=== PATIENT | male | born 1940 | race Caucasian/White ===

== ENCOUNTER 2021-03-28 04:27 | Inpatient (IN) | payer OTHER, MEDICARE ==
[~2021-03-28] VITALS: Ht 182.9 cm; Wt 58.9 kg
[~2021-03-28 04:27] MED LIST: Anusol-HC 2.5%30 GM EXT; DRON5 PO; HYDACE5 PO; HYDCOR2.5C PR; MULVITA PO; Miralax17 GM PO; OMEP20ER PO; PROM25 PO
[2021-03-28 05:10] LABS: Calcium, Ionized (POC) 1.11 mmol/L (1.10-1.46); Chloride (POC) 103 mmol/L (98-108); Creatinine (POC) 1.1 mg/dL (0.8-1.3); Glucose (ISTAT POC) 135 mg/dL (70-99); Hemoglobin (POC) 13.9 g/dL (13.5-17.5); Potassium (POC) 3.9 mmol/L (3.5-5.5); Sodium (POC) 136 mmol/L (135-148); Total CO2 (POC) 19 mmol/L (21-32)
[2021-03-28 05:15] LABS: BASOPHILS ABSOLUTE AUTO 0.04 K/mm3 (0.00-0.23); BASOPHILS PERCENT AUTO 1 % (0-2); EOSINOPHILS ABSOLUTE AUTO 0.18 K/mm3 (0.00-0.68); EOSINOPHILS PERCENT AUTO 2 % (0-6); Hematocrit 39.5 % (37.0-53.0); Hemoglobin 13.6 g/dL (13.5-17.5); IMMATURE GRAN ABSOLUTE AUTO 0.04 K/mm3 (0.00-0.10); IMMATURE GRAN PERCENT AUTO 1 % (0-1); LYMPHOCYTES ABSOLUTE AUTO 1.66 K/mm3 (0.84-5.20); LYMPHOCYTES PERCENT AUTO 19 % (21-46); MONOCYTES ABSOLUTE AUTO 0.72 K/mm3 (0.16-1.47); MONOCYTES PERCENT AUTO 8 % (4-13); Mean Corpuscular HGB 30.4 pg (26.0-34.0); Mean Corpuscular HGB Conc 34.4 g/dL (31.5-36.5); Mean Corpuscular Volume 88 fL (80-100); Mean Platelet Volume 9.2 fL (9.1-12.4); NEUTROPHILS ABSOLUTE AUTO 5.95 K/mm3 (1.96-9.15); NEUTROPHILS PERCENT AUTO 69 % (41-73); Platelet Count 175 K/mm3 (150-400); RDW Coefficient Variation 13.5 % (11.7-14.2); RDW Standard Deviation 43.9 fL (35.1-46.3); Red Blood Cell Count 4.48 M/mm3 (4.30-5.90); White Blood Cell Count 8.59 K/mm3 (4.00-11.30)
[2021-03-28 05:30] LABS: International Normalized Ratio 0.98; Prothrombin Time Results 10.6 Sec (9.7-11.5)
[2021-03-28 05:51] LABS: Alanine Aminotransfer (ALT/SGP 21 U/L (12-78); Albumin, Blood 3.6 g/dL (3.4-5.0); Albumin/Globulin Ratio 0.9 (0.8-1.8); Alk Phos 141 U/L (50-136); Anion Gap 7 mmol/L (6-16); Aspartate Aminotrans (AST/SGOT 43 U/L (12-37); Bilirubin, Total 0.7 mg/dL (0.1-1.0); Blood Urea Nitrogen 12 mg/dL (8-24); CO2, Blood 24 mmol/L (21-32); Calcium, Blood 9.2 mg/dL (8.5-10.1); Chloride, Blood 104 mmol/L (98-108); Creatinine, Blood 1.09 mg/dL (0.60-1.20); Glomerular Filtration Rate >60 (60-); Glucose, Blood 122 mg/dL (70-99); Potassium, Blood 3.7 mmol/L (3.5-5.5); Sodium, Blood 135 mmol/L (136-145); Total Protein, Blood 7.6 g/dL (6.4-8.2)
[2021-03-28 10:01] LABS: CHOL/HDL RATIO 3.6; Cholesterol 171 mg/dL (50-200); HDL Cholesterol 47 mg/dL (>39); LDL/HDL RATIO 2.4; Low Density Lipoprotein Chol 114 mg/dL (0-110); Triglycerides 50 mg/dL (30-160); Very Low Density Lipoprot Chol 10 mg/dL (6-32)
--- NOTE | 2021-03-28 12:12 | NUR ---
Echocardiogram completed.
--- NOTE | 2021-03-28 18:27 | NUR ---
PT RECEIVED AT 0728 FROM [facility]IA STRETCHER ACCOMPANIED BY RN X2 ON NITROGLYCERINE DRIP ON RA AND CARDIAC MONITORING; PT'S NITROGLYCERINE STOPPED AT 0935; TR BAND IN PLACE ON R RADIAL ACCESS SITE WITH 12ML AIR IN RETENTION PILLOW ; MINIMAL HEMATOMA NOTED DISTAL FROM BAND AND MARKED IN BLACK; SITE CHECKED AT 0730, 0745, 0800, 0815, 0845, AND 0900; PO ANTIHYPERTENSIVE RX GIVEN WHILE EDUCATION PROVIDED BY DR. TOVAR AT BEDSIDE; PHLEBOTOMY VISITED PT AT 0845 AND SBP NOTED TO HAVE DECREASED FROM 160'S TO 130'S; NEW DARK HEMATOMA NOTED AT 0900 WHERE NONE HAD BEEN NOTED AT 0845, MARGINS MARKED IN BLUE ; PRESSURE APPLIED MANUALLY AND DR. TOVAR WAS CALLED AT 0915; 2ML AIR ADDED PER TELEPHONE DIRECTIONS; DR. TOVAR AT BEDSIDE AT 0920 TO ASSESS SITE; DIRECTIONS PROVIDED VERBALLY TO BEGIN TR AIR EXTRACTION AT 1015; AIR VOLUME FOLLOWS; 12ML AIR AT 0910, 14ML AT 0915, 13.5ML AT 0923, 13 ML AT 0923, INCREASE IN HEMATOMA BORDERS BUT NOT ELEVATION NOTED AT 0930, PRESSURE HELD MANUALLY AND BORDERS MARKED IN RED, 11ML AT 1015, 9ML AT 1045, 7ML AT 1100, 5ML AT 1212, 3ML AT 1235, 1ML AT 1330, EMPTY AT 1422; BAND REMOVED AT 1645 AND ARM BOARD LEFT IN PLACE; PT'S DAUGHTER OBDULIA WAS UPDATED VIA PHONE AT 0945 AND REPORTED NO UNANSWERED QUESTIONS; VSS; HOPSON; PT VOIDED IN URINAL SEVERAL TIMES; PT'S DAUGHTER AT BEDSIDE DURING VISITING HOURS; PT DENIES ADDITIONAL CONCERNS AT THIS TIME ASIDE FROM SMOKING CESSATION, DIMINISHED APPETITE WITH RESULTING WEIGHT LOSS, AND MARIJUANA EDIBLE ROUTE CONSUMPTION, ALL OF WHICH WERE EDUCATED ABOUT BY DR. TOVAR AT BEDSIDE
[2021-03-28 19:01] LABS: Source, Urine Voided
[2021-03-28 19:06] LABS: Appearance, Urine Clear (Clear); Bilirubin, Urine Neg (Neg); Blood, Urine 4+ (Neg); Color, Urine Yellow (P-Yellow); Glucose Qualitative, Urine Neg (Neg); Ketones, Urine 1+ (Neg); Leukocyte Esterase, Urine Neg (Neg); Nitrite, Urine Neg (Neg); Protein, Urine 3+ (Neg); Urobilinogen, Urine NORM (Normal)
[2021-03-28 19:19] LABS: Bacteria Few /hpf; Hyaline Casts Rare /lpf (0-2); Red Blood Cells, Urine Not Seen /hpf (0-2); Squamous Epithelial Cells Rare /hpf (Few); White Blood Cells, Urine Rare /hpf (0-5)
--- NOTE | 2021-03-29 08:40 | NUR ---
INITIAL ASSESSMENT: PT IS AWAKE AND ALERT AND ORIENTED. PT REPORTED TO PCT THAT HE IS SOB. HE STATES HE FEELS LIKE HE IS HAVING TO BREATHE MORE RAPIDLY AND HAS A HARD TIME CATCHING HIS BREATH. BIOX 94% RA, 1L O2 PLACED FOR COMFORT. PT DENIES CP AT THIS TIME. HRR, SR WITH PACS IN THE 80S PER TELEMETRY. LS DIM IN THE BASES. PT HAS ARM BOARD TO RIGHT ARM, TR SITE WITH SOME BRUISING WITHIN TRACING, SOFT AND NON-TENDER. VSS. AM MEDS GIVEN AT THIS TIME. PT DENIES OTHER NEEDS, CALL LIGHT IN REACH, WILL CONTINUE TO MONITOR.
--- NOTE | 2021-03-29 09:00 | NUR ---
REPORT GIVEN TO KRISTINA SANTOS.
--- NOTE | 2021-03-29 12:39 | NUR ---
Assumed care of this pt this morning at 9 Am. He is A/o x 4 and has no c/o discomfort. Pt currently on 2lpm via NC, per report the pt was having some SOB and the O2 helped with his comfort and O2 SATs have been in the high 90's. The Pt reports that he started smoking when he was 14 and often feels like he cant catch his breath. Tele shows NSR in the 70's. His right radial site remains bruised but no bleeding observed. Pt is able to make his needs known and was reminded to use the call light for assistance.
--- NOTE | 2021-03-29 17:52 | NUR ---
SHIFT SUMMARY Pt has been a/o x 4 with no c/o pain. He calls appropriately and uses both the urinal and the toilet. His right radial site remains bruised and Dr Lamas is aware. This afternoon the pt has been tachy in a flutter. Dr Lamas was notified and gave orders for an ECG which was done and he reviewed the results. Dr Lamas met with the pt and then entered orders for his heart rate/rhythm as reflected on the MAR. The pt's HR is currently 104 down from the 140's-150's. The pt denies chest pain but he does report that he can feel when his HR is elevated. He is resting in bed watching TV and eating dinner.
--- NOTE | 2021-03-29 23:04 | NUR ---
BLACK STOOL PT HAS EPISODE OF BLACK STOOL. PT REPORTS HAVING GAS AND HAVING DIARRHEA, MADE IT TO BEDSIDE COMMODE W/O CALLING FOR ASSISTANCE. ON EXAMINATION, COMMODE IS FILLED IN BOTTOM WITH WHAT APPEARS TO BE BLACK TARRY, LOOSE STOOL. THIS RN ASKS PT HOW LONG HE HAS HAD THIS TYPE OF STOOL FOR, PT STATES IT HAS BEEN SINCE HE WAS HERE IN THE HOSPITAL. THIS RN COLLECTS A SAMPLE. DEPUTY DIRECTOR BELL NOTIFIED. HOLDING BRILLINTA UNTIL SPEAKING WITH HOSPITALIST.
--- NOTE | 2021-03-29 23:24 | NUR ---
CALL TO DR GARCIA THIS RN CALLS PROVIDER TO REPORT BLACK STOOLS, ORDER FOR GUAIC AND REPEAT CBC PLACED. PROVIDER REQUESTS THIS RN CONSULT CARDIOLOGY REGARDING CONTINUING BRILLINTA TONIGHT FOLLOWING RESULT OF GUAIAC. STOOL SAMPLE WAS ALREADY SENT TO LAB.
[2021-03-29 23:36] LABS: Stool Occult Blood Guaiac 1 Pos (Neg)
[2021-03-29 23:41] LABS: BASOPHILS ABSOLUTE AUTO 0.01 K/mm3 (0.00-0.23); BASOPHILS PERCENT AUTO 0 % (0-2); EOSINOPHILS PERCENT AUTO 0 % (0-6); Hematocrit 38.5 % (37.0-53.0); Hemoglobin 13.1 g/dL (13.5-17.5); IMMATURE GRAN ABSOLUTE AUTO 0.06 K/mm3 (0.00-0.10); IMMATURE GRAN PERCENT AUTO 1 % (0-1); LYMPHOCYTES ABSOLUTE AUTO 1.03 K/mm3 (0.84-5.20); LYMPHOCYTES PERCENT AUTO 9 % (21-46); MONOCYTES ABSOLUTE AUTO 0.97 K/mm3 (0.16-1.47); MONOCYTES PERCENT AUTO 8 % (4-13); Mean Corpuscular Volume 88 fL (80-100); Mean Platelet Volume 9.5 fL (9.1-12.4); NEUTROPHILS ABSOLUTE AUTO 9.54 K/mm3 (1.96-9.15); NEUTROPHILS PERCENT AUTO 82 % (41-73); Platelet Count 159 K/mm3 (150-400); RDW Coefficient Variation 13.9 % (11.7-14.2); RDW Standard Deviation 45.1 fL (35.1-46.3); Red Blood Cell Count 4.36 M/mm3 (4.30-5.90); White Blood Cell Count 11.61 K/mm3 (4.00-11.30)
--- NOTE | 2021-03-30 01:17 | NUR ---
CALL TO EQUIPMENT MONITOR PHOTOTYPESETTING DR HOPKINS THIS RN DISCUSSES PT CASE WITH DR HOPKINS AND JONATA HELD DUE TO BLACK TARRY STOOL AND FINDING OF POSITIVE GUAIAC. DR HOPKINS RECCOMENDS GIVING BRILINTA NOW AND HAVING PROVIDERS REASSESS IN THE AM. CONCERN FOR PT NOT ON BRILINTA DUE TO FRESH STENTS.
[2021-03-30 05:39] LABS: Hematocrit 37.1 % (37.0-53.0); Hemoglobin 12.5 g/dL (13.5-17.5)
--- NOTE | 2021-03-30 07:52 | NUR ---
SHIFT SUMMARY PT AOX4, DYSPNEIC WITH EXERTION. SINUS IN THE 80'S WITH OCCASIONAL PVC'S. DENIED CP T/O SHIFT. EPISODE OF BLACK TARRY STOOL. PROVIDERS CONSULTED. GI CONSULT THIS AM ORDERED, CONT PROTONIX GTT INFUSING. L IV TENDER AND SWOLLEN, DC. NO FURTHER EPISODES OF DIARRHEA. DENIES NAUSEA. BP TRENDED DOWN INTO MID 90'S SBP DURING SHIFT, BACK UP TO 110'S SBP THIS AM. PER DR HOPKINS DYER HELPER, BRILINTA DOSE GIVEN AND TO BE REASSESSED THIS AM.
[2021-03-30 11:25] LABS: SARS-Cov-2 (COVID-19) PCR, MMC NEGATIVE (NEGATIVE)
--- NOTE | 2021-03-30 11:56 | NUR ---
PT ALERT AND ORIENTED X4. FORGETFUL AT TIMES. LUNGS SOUNDING CLEAR AND DIM AT BASES. SATING MID 90'S ON 1 L O2. TELE SHOWING SINUS WITH HR 80'S. DENIES CHEST PAIN/PRESSURE. VITAL SIGNS STABLE. BOWEL TONES HEARD. REPORT THAT PATIENT HAD A EPISODE OF INCONTINENCE IN BED, AND THAT THE STOOL WAS BLACK AND TARRY. GI ON BOARD. PROTONIX GTT IN PLACE. PLAN FOR SCOPE TODAY. PT AWARE AND DENIES QUESTIONS. BRUISING SCATTERED THROUGHOUT. PT COMPLAINS OF DRY HACKING COUGH, I HAVE NOT OBSERVED ANY COUGHING THIS AM. CALL LIGHT IN REACH. PT ABLE TO REPOSITION SELF IN BED. WILL CONTINUE TO MONITOR.
--- NOTE | 2021-03-30 13:56 | NUR ---
PT TAKEN TO DAY SURGERY FOR EGD AT 1340.
--- NOTE | 2021-03-30 14:30 | NUR ---
03/30/21 1430 WADE BELLO History, Chart, Medications and Allergies reviewed before start of procedure. 3-LEAD EKG REVIEWED WITH PHYSICIAN PRIOR TO START OF PROCEDURE. MONITOR INTACT WITH CONTINUOUS PULSE OXIMETRY AND INTERMITTENT BP. O2 VIA POM INTACT THROUGHOUT SEDATION/PROCEDURE. GENERAL WITH DR. PEDRO
--- NOTE | 2021-03-30 14:41 | NUR ---
THE PATIENT WAS BROUGHT TO D/S FOR HIS PROCEDURE. Patient up to Ambulate independently. Gait steady. History, Chart, Medications and Allergies reviewed before start of procedure.Lungs clear T/O to Auscultation. Patient confirms NPO status and agrees with scheduled surgery. Pre-Op teaching done. Pt verbalizes understanding.
--- NOTE | 2021-03-30 15:43 | NUR ---
PT BACK FROM EGD AT 1350. VITAL SIGNS STABLE. ON 1 L O2 SATING MID 90'S. DENIES CHEST PAIN/PRESSURE. TELE SHOWING SINUS WITH HR 80'S. DENIES PAIN. PICTURES OF EGD IN CHART. WILL CONTINUE TO MONITOR.
--- NOTE | 2021-03-30 17:33 | NUR ---
SHIFT SUMMARY: PT REMAINS ALERT AND ORIENTED. VITAL SIGNS STABLE. SEE PREVIOUS NOTES. DENIES PAIN. NO SIGNS OF ACTIVE GI BLEED. PROTONIX INFUSING. PT ABLE TO MOVE INDEPEND IN BED. SOTALOL GIVEN AND POST ONE HOUR EKG DONE. DR. TOVAR UPDATED. PT EATING WELL. 1L O2 SATING MID 90'S. TELE SHOWING SINUS WITH HR 70-80'S. WILL CONTINUE TO MONITOR AND REPORT OFF.
[2021-03-31 05:08] LABS: BASOPHILS ABSOLUTE AUTO 0.03 K/mm3 (0.00-0.23); BASOPHILS PERCENT AUTO 0 % (0-2); EOSINOPHILS ABSOLUTE AUTO 0.09 K/mm3 (0.00-0.68); EOSINOPHILS PERCENT AUTO 1 % (0-6); Hematocrit 35.2 % (37.0-53.0); Hemoglobin 11.7 g/dL (13.5-17.5); IMMATURE GRAN ABSOLUTE AUTO 0.03 K/mm3 (0.00-0.10); IMMATURE GRAN PERCENT AUTO 0 % (0-1); LYMPHOCYTES ABSOLUTE AUTO 1.33 K/mm3 (0.84-5.20); LYMPHOCYTES PERCENT AUTO 14 % (21-46); MONOCYTES ABSOLUTE AUTO 0.92 K/mm3 (0.16-1.47); MONOCYTES PERCENT AUTO 9 % (4-13); Mean Corpuscular HGB 30.2 pg (26.0-34.0); Mean Corpuscular HGB Conc 33.2 g/dL (31.5-36.5); Mean Corpuscular Volume 91 fL (80-100); Mean Platelet Volume 10.2 fL (9.1-12.4); NEUTROPHILS ABSOLUTE AUTO 7.44 K/mm3 (1.96-9.15); NEUTROPHILS PERCENT AUTO 76 % (41-73); Platelet Count 160 K/mm3 (150-400); RDW Standard Deviation 46.4 fL (35.1-46.3); Red Blood Cell Count 3.88 M/mm3 (4.30-5.90); White Blood Cell Count 9.84 K/mm3 (4.00-11.30)
[2021-03-31 06:49] LABS: Digoxin (Lanoxin) 3.68 ug/mL (0.80-2.00)
--- NOTE | 2021-03-31 07:42 | NUR ---
SUMMARY PT WANTING TO GO HOME TODAY. IV SITE LOST THIS AM AND UNABLE TO OBTAIN ANOTHER SITE DUE TO VALVES AND PT DISCOMFORT OF PATENT SITE.ALSO, THIS AM DIG LEVEL CRITICAL REPORTED AT 0650 AND ÓSCAR FELIZ RN AGREES TO FOLLOW UP WITH
[2021-03-31] MEDS ORDERED: Acetaminophen325 M1 PO (17:02)
[2021-03-31] MEDS ORDERED: ATOR80 PO (17:03)
[2021-03-31] MEDS ORDERED: NITR.4SL SL (17:04)
[2021-03-31] MEDS ORDERED: LISI5 PO (17:04)
[2021-03-31] MEDS ORDERED: PANT40 PO (17:05)
[2021-03-31] MEDS ORDERED: SOTO80 PO (17:06)
[2021-03-31] MEDS ORDERED: TICA90TA PO (17:07)
--- NOTE | 2021-03-31 17:34 | NUR ---
DISCHARGE INSTRUCTIONS REVIEWED WITH PATIENT AND QUESTIONS ANSWERED. PT DENIES PAIN OR SOB, AGUILAR PO FOOD AND FLUIDS WITHOUT NAUSEA. VOIDING CLEAR YELLOW URINE, NO STOOLS THIS SHIFT. PT PRESCRIPTIONS FAXED TO JO PER PT REQUEST UNABLE TO BE FILLED AT [facility]. [facility] CONTACTED PER PT REQUEST TO TRANSPORT TO HOME
--- NOTE | 2021-03-31 17:55 | NUR ---
DISCHARGED TO HOME
== END 2021-03-31 18:00 | disposition home or self-care (01) | DRG 246 ==
LOC: ER 04:27 → ICUW 05:39 → ER 05:39 → PCU 05:39 → ICUW 07:10 → PCU 03-29 00:15 → ICUW 03-29 00:15 → PCU 03-29 15:43
PROVIDERS: Emergency Medicine; Family Medicine; Internal Medicine; Internal Medicine Gastroenterology; ADMIT Internal Medicine Cardiovascular Disease
PROC: 027035Z Dilation of Coronary Artery, One Artery with Two Drug-eluting Intraluminal Devices, Percutaneous Approach (ICD-10-PCS; principal; 2021-03-28)
PROC: 4A023N7 Measurement of Cardiac Sampling and Pressure, Left Heart, Percutaneous Approach (ICD-10-PCS; 2021-03-28)
PROC: B2111ZZ Fluoroscopy of Multiple Coronary Arteries using Low Osmolar Contrast (ICD-10-PCS; 2021-03-28)
PROC: 0DB68ZX Excision of Stomach, Via Natural or Artificial Opening Endoscopic, Diagnostic (ICD-10-PCS; 2021-03-30)
DX: I21.02 ST elevation (STEMI) myocardial infarction involving left anterior descending coronary artery (principal); K26.4 Chronic or unspecified duodenal ulcer with hemorrhage; K25.4 Chronic or unspecified gastric ulcer with hemorrhage; J44.9 Chronic obstructive pulmonary disease, unspecified; I25.10 Atherosclerotic heart disease of native coronary artery without angina pectoris; E78.5 Hyperlipidemia, unspecified; I10 Essential (primary) hypertension; F17.210 Nicotine dependence, cigarettes, uncomplicated; I48.0 Paroxysmal atrial fibrillation; J98.4 Other disorders of lung; T45.515A Adverse effect of anticoagulants, initial encounter; Z90.49 Acquired absence of other specified parts of digestive tract; Z91.041 Radiographic dye allergy status
CPT/HCPCS: 36415; 71045; 76937; 80047; 80053; 80061; 80162; 81001; 82270; 83036; 84443; 84484; 85014; 85018; 85025; 85347; 85610; 88305; 88342; 93005; 93010; 93458; 96365; 96375; 99152; 99153; 99285-25; A9270; C1725; C1769; C1874; C1887; C1894; C8929; C9113; C9606; J1160; J1200; J1644; J2250; J2270; J2704; J3010; J7030; J7050; J7120; Q9957; Q9967; U0004

== ENCOUNTER 2021-04-20 07:36 | Emergency (ER) | payer OTHER, MEDICARE ==
[~2021-04-20] VITALS: Ht 182.9 cm; Wt 58.1 kg
[~2021-04-20 07:36] MED LIST changes: +ATOR80 PO; +Acetaminophen325 M1 PO; +LISI5 PO; +NITR.4SL SL; +PANT40 PO; +SOTO80 PO; +TICA90TA PO
[2021-04-20 07:59] LABS: BASOPHILS ABSOLUTE AUTO 0.07 K/mm3 (0.00-0.23); BASOPHILS PERCENT AUTO 1 % (0-2); EOSINOPHILS ABSOLUTE AUTO 0.31 K/mm3 (0.00-0.68); EOSINOPHILS PERCENT AUTO 4 % (0-6); Hematocrit 36.6 % (37.0-53.0); Hemoglobin 12.2 g/dL (13.5-17.5); IMMATURE GRAN ABSOLUTE AUTO 0.01 K/mm3 (0.00-0.10); IMMATURE GRAN PERCENT AUTO 0 % (0-1); LYMPHOCYTES ABSOLUTE AUTO 1.61 K/mm3 (0.84-5.20); LYMPHOCYTES PERCENT AUTO 22 % (21-46); MONOCYTES ABSOLUTE AUTO 0.69 K/mm3 (0.16-1.47); MONOCYTES PERCENT AUTO 9 % (4-13); Mean Corpuscular HGB 29.9 pg (26.0-34.0); Mean Corpuscular HGB Conc 33.3 g/dL (31.5-36.5); Mean Corpuscular Volume 90 fL (80-100); Mean Platelet Volume 9.3 fL (9.1-12.4); NEUTROPHILS ABSOLUTE AUTO 4.65 K/mm3 (1.96-9.15); NEUTROPHILS PERCENT AUTO 63 % (41-73); Platelet Count 204 K/mm3 (150-400); RDW Coefficient Variation 14.2 % (11.7-14.2); RDW Standard Deviation 46.4 fL (35.1-46.3); Red Blood Cell Count 4.08 M/mm3 (4.30-5.90); White Blood Cell Count 7.34 K/mm3 (4.00-11.30)
[2021-04-20 08:18] LABS: Albumin, Blood 3.6 g/dL (3.4-5.0); Albumin/Globulin Ratio 0.9 (0.8-1.8); Bilirubin, Total 0.7 mg/dL (0.1-1.0); Bun/Creatinine Ratio 9.5 (12.0-20.0); Calcium, Blood 9.4 mg/dL (8.5-10.1); Creatinine, Blood 1.79 mg/dL (0.60-1.20); Potassium, Blood 3.7 mmol/L (3.5-5.5); Total Protein, Blood 7.6 g/dL (6.4-8.2)
[2021-04-20] MEDS ORDERED: TORSE20 PO (08:30)
[2021-04-20] MEDS ORDERED: SPIR25 PO (08:31)
[2021-04-20] MEDS ORDERED: Crestor20 MG PO (08:32)
[2021-04-20] MEDS ORDERED: PRED20 PO (09:08)
== END 2021-04-20 09:37 | disposition home or self-care (01) ==
LOC: ER 07:36
PROVIDERS: Emergency Medicine
DX: R06.02 Shortness of breath (principal); Z79.899 Other long term (current) drug therapy; Z91.041 Radiographic dye allergy status; Z87.891 Personal history of nicotine dependence
CPT/HCPCS: 71045; 80053; 84484; 85025; 93005; 93010; 94640; 94664; 96374; 99285-25; A9270; J1100

== ENCOUNTER 2021-06-02 18:29 | Inpatient (IN) | payer OTHER, MEDICARE ==
[~2021-06-02] VITALS: Ht 182.9 cm; Wt 121.6 kg
[~2021-06-02 18:29] MED LIST changes: +Crestor20 MG PO; +PRED20 PO; +SPIR25 PO; +TORSE20 PO
[2021-06-02 18:56] LABS: BASOPHILS ABSOLUTE AUTO 0.03 K/mm3 (0.00-0.23); BASOPHILS PERCENT AUTO 0 % (0-2); EOSINOPHILS ABSOLUTE AUTO 0.03 K/mm3 (0.00-0.68); EOSINOPHILS PERCENT AUTO 0 % (0-6); Hematocrit 33.8 % (37.0-53.0); Hemoglobin 11.2 g/dL (13.5-17.5); IMMATURE GRAN ABSOLUTE AUTO 0.07 K/mm3 (0.00-0.10); IMMATURE GRAN PERCENT AUTO 1 % (0-1); LYMPHOCYTES ABSOLUTE AUTO 1.29 K/mm3 (0.84-5.20); LYMPHOCYTES PERCENT AUTO 11 % (21-46); MONOCYTES ABSOLUTE AUTO 1.38 K/mm3 (0.16-1.47); MONOCYTES PERCENT AUTO 11 % (4-13); Mean Corpuscular HGB 29.4 pg (26.0-34.0); Mean Corpuscular HGB Conc 33.1 g/dL (31.5-36.5); Mean Corpuscular Volume 89 fL (80-100); Mean Platelet Volume 9.5 fL (9.1-12.4); NEUTROPHILS ABSOLUTE AUTO 9.51 K/mm3 (1.96-9.15); NEUTROPHILS PERCENT AUTO 77 % (41-73); Platelet Count 263 K/mm3 (150-400); RDW Coefficient Variation 14.4 % (11.7-14.2); RDW Standard Deviation 46.5 fL (35.1-46.3); Red Blood Cell Count 3.81 M/mm3 (4.30-5.90); White Blood Cell Count 12.31 K/mm3 (4.00-11.30)
[2021-06-02 19:09] LABS: Albumin/Globulin Ratio 0.7 (0.8-1.8); Bilirubin, Total 0.5 mg/dL (0.1-1.0); Bun/Creatinine Ratio 15.3 (12.0-20.0); Calcium, Blood 9.6 mg/dL (8.5-10.1); Creatinine, Blood 2.48 mg/dL (0.60-1.20); Globulin, Blood 4.1 g/dL (2.2-4.0); Magnesium, Blood 1.9 mg/dL (1.6-2.4); Potassium, Blood 5.5 mmol/L (3.5-5.5); Total Protein, Blood 7.1 g/dL (6.4-8.2); Troponin I 0.479 ng/mL (0.000-0.040)
[2021-06-02 19:37] LABS: International Normalized Ratio 1.07; Prothrombin Time Results 11.5 Sec (9.7-11.5)
[2021-06-03 01:01] LABS: Troponin I 0.63 ng/mL (0.000-0.040)
[2021-06-03] MEDS ORDERED: ATOR80 PO (01:52)
[2021-06-03] MEDS ORDERED: CLOP75 PO (01:53)
--- NOTE | 2021-06-03 02:41 | NUR ---
Admit Note Received handoff from ER nurse Naeem. Pt arrived to floor via gurney. Telemetry in placed. Iv fluids infusing. Call button within reach. Pt oriented to unit.
--- NOTE | 2021-06-03 03:59 | NUR ---
Started hepain as ordered.
[2021-06-03 05:02] LABS: Source, Urine Clean Catch
[2021-06-03 05:09] LABS: Blood, Urine Neg (Neg); Glucose Qualitative, Urine Neg (Neg); Ketones, Urine 1+ (Neg); Leukocyte Esterase, Urine 1+ (Neg); Nitrite, Urine Neg (Neg); Protein, Urine 2+ (Neg); Specific Gravity, Urine 1.025 (1.003-1.022); Urobilinogen, Urine 1+ (Normal)
[2021-06-03 05:38] LABS: Appearance, Urine Hazy (Clear); Bilirubin, Urine 1+ (Neg); Color, Urine Amber (P-Yellow)
[2021-06-03 05:39] LABS: Amorphous Mod (0-Heavy); Bacteria Rare /hpf; Red Blood Cells, Urine Not Seen /hpf (0-2); Squamous Epithelial Cells Rare /hpf (Few); Transitional Epithelial Cells Few /hpf (0-Rare); White Blood Cells, Urine 0-2 /hpf (0-5)
[2021-06-03 05:48] LABS: BASOPHILS ABSOLUTE AUTO 0.03 K/mm3 (0.00-0.23); BASOPHILS PERCENT AUTO 0 % (0-2); EOSINOPHILS ABSOLUTE AUTO 0.03 K/mm3 (0.00-0.68); EOSINOPHILS PERCENT AUTO 0 % (0-6); Hematocrit 31.2 % (37.0-53.0); Hemoglobin 10.1 g/dL (13.5-17.5); IMMATURE GRAN ABSOLUTE AUTO 0.03 K/mm3 (0.00-0.10); IMMATURE GRAN PERCENT AUTO 0 % (0-1); LYMPHOCYTES ABSOLUTE AUTO 1.47 K/mm3 (0.84-5.20); LYMPHOCYTES PERCENT AUTO 17 % (21-46); MONOCYTES ABSOLUTE AUTO 0.94 K/mm3 (0.16-1.47); MONOCYTES PERCENT AUTO 11 % (4-13); Mean Corpuscular HGB 29.4 pg (26.0-34.0); Mean Corpuscular HGB Conc 32.4 g/dL (31.5-36.5); Mean Corpuscular Volume 91 fL (80-100); Mean Platelet Volume 9.8 fL (9.1-12.4); NEUTROPHILS ABSOLUTE AUTO 6.23 K/mm3 (1.96-9.15); NEUTROPHILS PERCENT AUTO 72 % (41-73); Platelet Count 228 K/mm3 (150-400); RDW Coefficient Variation 14.5 % (11.7-14.2); RDW Standard Deviation 48.2 fL (35.1-46.3); Red Blood Cell Count 3.44 M/mm3 (4.30-5.90); White Blood Cell Count 8.73 K/mm3 (4.00-11.30)
[2021-06-03 08:56] LABS: CPK Creatine Kinase 59 U/L (39-308)
--- NOTE | 2021-06-03 14:49 | NUR ---
Echocardiogram completed.
--- NOTE | 2021-06-03 14:50 | NUR ---
BETSEY IRAHETA/NPO RECEIVED CALL FROM DR. MARMOLEJO TO MAKE PATIENT NPO D/T ECHO RESULTS. ALSO, T.O. TO D/C MYRTLE FOR POSSIBLE PERCARDIAL EFFUSION DRAINAGE. ORDERS UPDATED.
--- NOTE | 2021-06-03 15:33 | NUR ---
MIDSHIFT SUMMARY A/Ox4, pleasant and cooperative. Reports dizziness with position changes (sitting up and ambulation). Calls for assistance with needs. Heparin has been d/c per Dr. Alvarez. ECHO completed and plan for pericardial effusion drainage today. Stat COVID done and sent to lab preprocedure. Still on 5L O2. Tele: SR with PAC's.
[2021-06-03 17:35] LABS: SARS-Cov-2 (COVID-19) PCR, MMC NEGATIVE (NEGATIVE)
[2021-06-03 17:49] LABS: Automated BF RBC Count 2.479 M/mm3 (0-0); Automated BF WBC Count 2.981 K/mm3 (0-999); Body Fluid WBC Count 2981 /mm3 (0-999); RBC Count, Body Fluid 2479000 /mm3 (0-0)
[2021-06-03 17:50] LABS: Color, Body Fluid Red (None-Yellow)
[2021-06-03 17:51] LABS: Appearance, Body Fluid Bloody (Clear)
[2021-06-03 18:25] LABS: Lactate Dehydrogenase, Body Fl 1074 U/L
--- NOTE | 2021-06-03 18:33 | NUR ---
PATIENT IS ALERT AND ORIENTED AND COOPERATIVE WITH CARE. PATIENT UNDERWENT PERICARDIOCENTESIS THIS AFTERNOON, 800CC OF FLUID WAS DRAINED AND SENT TO THE LAB. NO C/O PAIN OR SOB SINCE RETURN TO ROOM. WILL CONTINUE TO MONITOR
[2021-06-03 19:20] LABS: Total Cell Count, Body Fluid 100
[2021-06-04 06:16] LABS: BASOPHILS ABSOLUTE AUTO 0.05 K/mm3 (0.00-0.23); BASOPHILS PERCENT AUTO 1 % (0-2); EOSINOPHILS ABSOLUTE AUTO 0.14 K/mm3 (0.00-0.68); EOSINOPHILS PERCENT AUTO 1 % (0-6); Hematocrit 31.8 % (37.0-53.0); Hemoglobin 10.7 g/dL (13.5-17.5); IMMATURE GRAN ABSOLUTE AUTO 0.04 K/mm3 (0.00-0.10); IMMATURE GRAN PERCENT AUTO 0 % (0-1); LYMPHOCYTES ABSOLUTE AUTO 1.28 K/mm3 (0.84-5.20); LYMPHOCYTES PERCENT AUTO 13 % (21-46); MONOCYTES ABSOLUTE AUTO 1.13 K/mm3 (0.16-1.47); MONOCYTES PERCENT AUTO 11 % (4-13); Mean Corpuscular HGB Conc 33.6 g/dL (31.5-36.5); Mean Corpuscular Volume 89 fL (80-100); Mean Platelet Volume 9.4 fL (9.1-12.4); NEUTROPHILS ABSOLUTE AUTO 7.25 K/mm3 (1.96-9.15); NEUTROPHILS PERCENT AUTO 73 % (41-73); Platelet Count 250 K/mm3 (150-400); RDW Coefficient Variation 14.2 % (11.7-14.2); Red Blood Cell Count 3.57 M/mm3 (4.30-5.90); White Blood Cell Count 9.89 K/mm3 (4.00-11.30)
--- NOTE | 2021-06-04 06:40 | NUR ---
SUMMARY PT HAD EPISODE OF A-FIB W/ RVR. PROVIDER ORDERED LOPRESSOR IV. PT GIVEN ONE DOSE AND CONVERTED TO SR@ 70'S. PT DENIED CX PAIN OR SOB DURING EPISODES. PT HAS SLEPT WELL T/O SHIFT. PT AWAKE AND IN NO DISTRESS. CALL LIGHT IN REACH,
[2021-06-04 06:43] LABS: Albumin, Blood 2.5 g/dL (3.4-5.0); Albumin/Globulin Ratio 0.7 (0.8-1.8); Bilirubin, Total 0.6 mg/dL (0.1-1.0); Calcium, Blood 8.8 mg/dL (8.5-10.1); Creatinine, Blood 2.59 mg/dL (0.60-1.20); Globulin, Blood 3.6 g/dL (2.2-4.0); Potassium, Blood 4.9 mmol/L (3.5-5.5); Total Protein, Blood 6.1 g/dL (6.4-8.2)
--- NOTE | 2021-06-04 12:29 | NUR ---
Partial echocardiogram completed.
--- NOTE | 2021-06-04 19:11 | NUR ---
Alert and oriented x3 , Had mutiple episode of elevated heart rate and was on tele with Sinus Rhythm at 160s, Dr Alvarez and Dr Louise notified, seen by both. Dr Alvarez ordered EKG for Sten elevation reported by telemetry nurse but EKG shows STEM elevation.
--- NOTE | 2021-06-04 23:20 | NUR ---
PATIENT COMPLAINING OF PAIN WHEN BREATHING AND TENDERNESS AT THE DRAIN INSERTION SITE. PAGED AND PRN FENTNYL WAS ADDED TO EMAR. DOSE GIVEN AND PAIN RELIEVED. STILL VERY TENDER AT THE INSERTION SITE. MD CLOUD PAGED REGARDING MAINTENCE OF DRAIN. HE DOES NOT WANT DRAIN TO BE FLUSHED. MANAGE WITH PRN PAIN MEDS. MD EXPECTS HIS PAIN TO BE INTENSE BECAUSE THIS IS THE SECOND CARDIAC [place] DRAINAGE THAT WAS DONE AT THAT SITE. BLOODY DRAINAGE IS PRESENT IN DRAINAGE BAG. MD HERRERA WAS ON FLOOR AND ASSESSED PATIENT. DID NOT SEE ANYTHING ALARMING EITHER.
--- NOTE | 2021-06-04 23:31 | NUR ---
24 HOUR URINE STARTED AT 2230.
[2021-06-05 04:34] LABS: Hematocrit 30.8 % (37.0-53.0); Hemoglobin 10.2 g/dL (13.5-17.5)
[2021-06-05 05:05] LABS: Albumin, Blood 2.3 g/dL (3.4-5.0); Albumin/Globulin Ratio 0.7 (0.8-1.8); Bilirubin, Direct 0.3 mg/dL (0.0-0.3); Bilirubin, Indirect 0.5 mg/dL (0.1-0.7); Bilirubin, Total 0.8 mg/dL (0.1-1.0); Bun/Creatinine Ratio 19.2 (12.0-20.0); Calcium, Blood 8.2 mg/dL (8.5-10.1); Creatinine, Blood 2.03 mg/dL (0.60-1.20); Globulin, Blood 3.4 g/dL (2.2-4.0); Phosphorus, Blood 3.6 mg/dL (2.5-4.9); Potassium, Blood 4.8 mmol/L (3.5-5.5); Thyroid Stimulating Hormone 1.91 uIU/mL (0.360-4.800); Total Protein, Blood 5.7 g/dL (6.4-8.2); Uric Acid, Blood 9.2 mg/dL (3.5-7.2)
--- NOTE | 2021-06-05 06:48 | NUR ---
CHEST PAIN PERSISTED THROUGHOUT NIGHT AND TIGHTNESS IN CHEST AND SOB. MD CALLED AND MORPHINE ORDERED THIS MORNING AND GIVEN.
--- NOTE | 2021-06-05 09:27 | NUR ---
Echocardiogram completed.
--- NOTE | 2021-06-05 16:34 | NUR ---
PT TRANSFERD PT TRANSFERED TO [facility]. REPORT WAS GIVEN TO IBIS SANTOS AT [facility], PT WAS TRANSFERED VIA GURNEY ACCOMPANIED BY [facility]. ON O2 AT 3L/MIN. PT WAS A/OX4 AT THE TIME OF TRANSFER, BELONGINGS RELEASED TO AND WITH THE PT
[2021-06-07 09:10] LABS: ANTIGLOMERULAR BM AB 2 units (0-20)
[2021-06-07 17:10] LABS: ANA DIRECT Negative (Negative); ANTIMYELOPEROXIDASE (MPO) ABS <9.0 U/mL (0.0-9.0); ANTIPROTEINASE 3 (PR-3) ABS <3.5 U/mL (0.0-3.5); ATYPICAL PANCA <1:20 titer (Neg:<1:20); CYTOPLASMIC (C-ANCA) <1:20 titer (Neg:<1:20); PERINUCLEAR (P-ANCA) <1:20 titer (Neg:<1:20)
[2021-06-08 16:11] LABS: A/G RATIO 0.8 (0.7-1.7); ALBUMIN 2.2 g/dL (2.9-4.4); ALPHA-1-GLOBULIN 0.4 g/dL (0.0-0.4); ALPHA-2-GLOBULIN 0.8 g/dL (0.4-1.0); BETA GLOBULIN 0.8 g/dL (0.7-1.3); IMMUNOGLOBULIN A, QN, SERUM 58 mg/dL (61-437); IMMUNOGLOBULIN G, QN, SERUM 393 mg/dL (603-1613); IMMUNOGLOBULIN M, QN, SERUM 851 mg/dL (15-143); M-SPIKE 0.5 g/dL (Not Observed); PROTEIN, TOTAL, SERUM 5.2 g/dL (6.0-8.5)
== END 2021-06-05 14:29 | disposition short-term general hospital (02) | DRG 315 ==
LOC: ER 18:29 → MEDS 18:30 → ENPENDDIS 06-05 11:37 → MEDS 06-05 14:29
PROVIDERS: Emergency Medicine; Family Medicine; Internal Medicine Cardiovascular Disease; Internal Medicine Nephrology; ADMIT Internal Medicine
PROC: 0W9D3ZZ Drainage of Pericardial Cavity, Percutaneous Approach (ICD-10-PCS; principal; 2021-06-03)
PROC: 0W9D3ZZ Drainage of Pericardial Cavity, Percutaneous Approach (ICD-10-PCS; 2021-06-04)
PROC: 0W9D3ZZ Drainage of Pericardial Cavity, Percutaneous Approach (ICD-10-PCS; 2021-06-04)
DX: I31.3 Pericardial effusion (noninflammatory) (principal); N17.9 Acute kidney failure, unspecified; R64 Cachexia; E87.2 Acidosis; Z68.1 Body mass index [BMI] 19.9 or less, adult; N18.4 Chronic kidney disease, stage 4 (severe); Z20.822 Contact with and (suspected) exposure to COVID-19; I31.4 Cardiac tamponade; K59.00 Constipation, unspecified; I48.0 Paroxysmal atrial fibrillation; I10 Essential (primary) hypertension; K21.9 Gastro-esophageal reflux disease without esophagitis; Z88.8 Allergy status to other drugs, medicaments and biological substances; E78.5 Hyperlipidemia, unspecified; I44.7 Left bundle-branch block, unspecified; Z79.899 Other long term (current) drug therapy; F17.210 Nicotine dependence, cigarettes, uncomplicated; J43.9 Emphysema, unspecified; E86.0 Dehydration; I08.1 Rheumatic disorders of both mitral and tricuspid valves; E88.09 Other disorders of plasma-protein metabolism, not elsewhere classified; E86.9 Volume depletion, unspecified
CPT/HCPCS: 33016; 33017; 36415; 71045; 71250; 71260; 74176; 74177; 76770; 78580; 80053; 81001; 82248; 82533; 82550; 82784; 83516; 83520; 83615; 83735; 83880; 84100; 84145; 84165; 84443; 84484; 84550; 85014; 85018; 85025; 85379; 85610; 85730; 86038; 86256; 86334; 87086; 88108; 88305; 88341; 88342; 89051; 93005; 93010; 93308; 94640; 94760; 96361; 96374; 96375; 99152; 99153; 99285-25; A9270; A9540; C1769; C1894; G0378; J1644; J2250; J2270; J3010; J7030; J7040; J7120; U0004

== ENCOUNTER 2021-06-25 11:03 | Emergency (ER) | payer OTHER ==
[~2021-06-25] VITALS: Ht 182.9 cm; Wt 66.7 kg
[~2021-06-25 11:03] MED LIST changes: +CLOP75 PO
[2021-06-25 12:03] LABS: BASOPHILS ABSOLUTE AUTO 0.06 K/mm3 (0.00-0.23); BASOPHILS PERCENT AUTO 1 % (0-2); EOSINOPHILS ABSOLUTE AUTO 0.31 K/mm3 (0.00-0.68); EOSINOPHILS PERCENT AUTO 5 % (0-6); Hematocrit 28.9 % (37.0-53.0); IMMATURE GRAN ABSOLUTE AUTO 0.02 K/mm3 (0.00-0.10); IMMATURE GRAN PERCENT AUTO 0 % (0-1); LYMPHOCYTES ABSOLUTE AUTO 0.65 K/mm3 (0.84-5.20); LYMPHOCYTES PERCENT AUTO 10 % (21-46); MONOCYTES ABSOLUTE AUTO 0.56 K/mm3 (0.16-1.47); MONOCYTES PERCENT AUTO 8 % (4-13); Mean Corpuscular HGB 28.4 pg (26.0-34.0); Mean Corpuscular HGB Conc 31.1 g/dL (31.5-36.5); Mean Corpuscular Volume 91 fL (80-100); Mean Platelet Volume 9.3 fL (9.1-12.4); NEUTROPHILS ABSOLUTE AUTO 5.18 K/mm3 (1.96-9.15); NEUTROPHILS PERCENT AUTO 76 % (41-73); Platelet Count 235 K/mm3 (150-400); RDW Coefficient Variation 17.8 % (11.7-14.2); RDW Standard Deviation 57.5 fL (35.1-46.3); Red Blood Cell Count 3.17 M/mm3 (4.30-5.90); White Blood Cell Count 6.78 K/mm3 (4.00-11.30)
[2021-06-25 12:24] LABS: Bun/Creatinine Ratio 16.7 (12.0-20.0); Calcium, Blood 8.3 mg/dL (8.5-10.1); Creatinine, Blood 1.62 mg/dL (0.60-1.20); Potassium, Blood 3.9 mmol/L (3.5-5.5); Troponin I 0.077 ng/mL (0.000-0.040)
[2021-06-25 12:41] LABS: SARS-Cov-2 (COVID-19) PCR, MMC NEGATIVE (NEGATIVE)
== END 2021-06-25 20:16 | disposition short-term general hospital (02) ==
LOC: ER 11:03
PROVIDERS: Student in an Organized Health Care Education/Training Program
DX: C34.90 Malignant neoplasm of unspecified part of unspecified bronchus or lung (principal); J91.0 Malignant pleural effusion; R77.8 Other specified abnormalities of plasma proteins; I25.2 Old myocardial infarction; Z79.899 Other long term (current) drug therapy; Z79.02 Long term (current) use of antithrombotics/antiplatelets; Z88.8 Allergy status to other drugs, medicaments and biological substances; Z87.891 Personal history of nicotine dependence; Z20.822 Contact with and (suspected) exposure to COVID-19; Z99.81 Dependence on supplemental oxygen
CPT/HCPCS: 36415; 71045; 80048; 84484; 85025; 93005; 93010; 99285-25; A9270; U0004

== ENCOUNTER 2021-07-05 15:18 | Emergency (ER) | payer OTHER ==
[~2021-07-05] VITALS: Ht 182.9 cm; Wt 54.9 kg
[~2021-07-05 15:18] MED LIST changes: +ATOR40TA PO
[2021-07-05 16:12] LABS: BASOPHILS ABSOLUTE AUTO 0.03 K/mm3 (0.00-0.23); BASOPHILS PERCENT AUTO 1 % (0-2); EOSINOPHILS ABSOLUTE AUTO 0.12 K/mm3 (0.00-0.68); EOSINOPHILS PERCENT AUTO 2 % (0-6); Hematocrit 27.8 % (37.0-53.0); Hemoglobin 8.6 g/dL (13.5-17.5); IMMATURE GRAN ABSOLUTE AUTO 0.01 K/mm3 (0.00-0.10); IMMATURE GRAN PERCENT AUTO 0 % (0-1); LYMPHOCYTES ABSOLUTE AUTO 0.71 K/mm3 (0.84-5.20); LYMPHOCYTES PERCENT AUTO 14 % (21-46); MONOCYTES ABSOLUTE AUTO 0.65 K/mm3 (0.16-1.47); MONOCYTES PERCENT AUTO 13 % (4-13); Mean Corpuscular HGB 29.7 pg (26.0-34.0); Mean Corpuscular HGB Conc 30.9 g/dL (31.5-36.5); Mean Corpuscular Volume 96 fL (80-100); Mean Platelet Volume 9.8 fL (9.1-12.4); NEUTROPHILS ABSOLUTE AUTO 3.61 K/mm3 (1.96-9.15); NEUTROPHILS PERCENT AUTO 70 % (41-73); Platelet Count 247 K/mm3 (150-400); RDW Coefficient Variation 19.5 % (11.7-14.2); RDW Standard Deviation 68.9 fL (35.1-46.3); White Blood Cell Count 5.13 K/mm3 (4.00-11.30)
[2021-07-05 16:30] LABS: Alanine Aminotransfer (ALT/SGP 37 U/L (12-78); Albumin, Blood 2.1 g/dL (3.4-5.0); Albumin/Globulin Ratio 0.7 (0.8-1.8); Alk Phos 197 U/L (50-136); Anion Gap 4 mmol/L (6-16); Aspartate Aminotrans (AST/SGOT 40 U/L (12-37); Bilirubin, Total 0.4 mg/dL (0.1-1.0); Blood Urea Nitrogen 27 mg/dL (8-24); Bun/Creatinine Ratio 16.7 (12.0-20.0); CO2, Blood 23 mmol/L (21-32); Calcium, Blood 8.4 mg/dL (8.5-10.1); Chloride, Blood 116 mmol/L (98-108); Creatinine, Blood 1.62 mg/dL (0.60-1.20); Globulin, Blood 3.2 g/dL (2.2-4.0); Glomerular Filtration Rate 41 (60-); Glucose, Blood 105 mg/dL (70-99); Potassium, Blood 4.1 mmol/L (3.5-5.5); Sodium, Blood 143 mmol/L (136-145); Total Protein, Blood 5.3 g/dL (6.4-8.2); Troponin I <0.015 ng/mL (0.000-0.040)
[2021-07-05] MEDS ORDERED: Buspirone HCl15 MG PO (18:29)
[2021-07-05] MEDS ORDERED: FURO40 PO (18:30)
[2021-07-05] MEDS ORDERED: LISI5 PO (18:30)
[2021-07-05] MEDS ORDERED: Prozac20 MG PO (18:30)
[2021-07-05] MEDS ORDERED: OMEP20ER PO (18:31)
[2021-07-05] MEDS ORDERED: METF500 PO (18:31)
[2021-07-05] MEDS ORDERED: POTA10T PO (18:32)
== END 2021-07-05 18:30 | disposition home or self-care (01) ==
LOC: ER 15:18
PROVIDERS: Physician Assistant
DX: R07.89 Other chest pain (principal); R10.9 Unspecified abdominal pain; C34.90 Malignant neoplasm of unspecified part of unspecified bronchus or lung; J90 Pleural effusion, not elsewhere classified; J44.9 Chronic obstructive pulmonary disease, unspecified; I25.2 Old myocardial infarction; N17.9 Acute kidney failure, unspecified; Z91.041 Radiographic dye allergy status; Z79.899 Other long term (current) drug therapy; Z79.02 Long term (current) use of antithrombotics/antiplatelets; Z87.891 Personal history of nicotine dependence
CPT/HCPCS: 36415; 71046; 80053; 84484; 85025; 93005; 93010; 99285-25